=== PATIENT | male | born 1935 ===

== ENCOUNTER 2017-11-21 09:18 | Observation (INO) | payer MEDICARE, OTHER ==
[2016-05-31 11:19] VITALS: BMI 23.8
[2017-11-21] MEDS ORDERED: Lidocaine/Epinephrine 1% 1:100000 10 ML IJ ONE (13:27)
[2017-11-21] MEDS ORDERED: Propofol 10 mg/ml Inj (20 ML) ONE (13:28)
[2017-11-21] MEDS ORDERED: Rocuronium 10 mg/ml (5 ml) ONE (13:29)
[2017-11-21] MEDS: Bupivacaine HCl 0.25% PF (30 ml) Inj ONE ×2 (13:35→16:30)
[2017-11-21] MEDS: ceFAZolin 1 gm in NS 2 GM/200 ML BAG IVPB ONE ×2 (13:45→13:50)
[2017-11-21] MEDS ORDERED: Neostigmine Methylsulfate 3mg/3ml Syringe IV ONE (15:38)
[2017-11-21] MEDS ORDERED: Oxycodone/Acetaminophen 5/325 mg Tab PO PRN (16:51)
--- NOTE | 2017-11-21 16:56 | PCM.SURG1 ---
Surgeon's Initial Post Op Note - Surgeon's Notes Surgeon: Dr. Young Personal Financial Advisor: ALEXIA Kumar PGY2 Type of Anesthesia: General Endo Pre-Operative Diagnosis: left inguinal hernia Operative Findings: left indirect inguinal and femoral hernia with cord lipoma, right indirect inguinal hernia with cord lipoma, umbilica hernia Post-Operative Diagnosis: bilateral inguinal hernia Operation Performed: robotic assisted laparoscopic bilateral inguinal hernia repair with mesh Specimen/Specimens Removed: bilateral cord lipomas Estimated Blood Loss: EBL {In ML}: 10 Blood Products Given: N/A Drains Used: No Drains Date of Surgery/Procedure: 11/21/17 Time of Surgery/Procedure: 14:00
[2017-11-21] MEDS: HYDROmorphone 0.5 mg/0.5 ml ISec IVP PRN ×3 (17:01→17:37)
[2017-11-21] MEDS ORDERED: Lactated Ringer's 500 ML IV ONE (19:00)
[2017-11-21] MEDS: Lactated Ringer's 1,000 ML IV SCH (21:30)
[2017-11-21 22:12] VITALS: RESP 20
[2017-11-21] MEDS: (Novolin R) Insulin Human Regular 100 units/ml vial SC SCH (22:27)
[2017-11-21] MEDS: Docusate-Senna 50 mg-8.6 mg Tab PO SCH (22:38)
--- NOTE | 2017-11-22 04:20 | OP ---
PROCEDURE DATE: 11/21/2017 PREOPERATIVE DIAGNOSES: 1. Left inguinal hernia. 2. Possible bilateral inguinal hernia. POSTOPERATIVE DIAGNOSES: 1. Left direct inguinal hernia. 2. Left large lipoma of the cord. 3. Right direct inguinal hernia. 4. Right lipoma of the spermatic cord. 5. Umbilical hernia, very small. PROCEDURE: 1. Robotic left inguinal hernia repair with a mesh. 2. Robotic excision of lipoma of the left spermatic cord. 3. Robotic right direct inguinal hernia. 4. Robotic excision of the right lipoma of the cord. 5. Laparoscopic bilateral TAP block placement. 6. Open umbilical hernia repair with primary closure, without mesh. SURGEON: Julio Young MD TYPE COPY EXAMINER: HARRY Root; and Morenita Cali, PGY-2 resident. ESTIMATED BLOOD LOSS: 10 mL. COMPLICATIONS: None. PATHOLOGY: 1. Left lipoma of the cord. 2. Right lipoma of the cord was sent to the pathology. INTRAOPERATIVE FINDINGS: The patient had left indirect inguinal hernia with large lipoma of the cord. The patient also had right direct inguinal hernia with large lipoma of the spermatic cord, and the patient had very small 1 x 1 cm umbilical hernia defect and the patient had no postoperative adhesions. On intraoperative steps, this is an 82-year-old male who was diagnosed with left inguinal hernia on CAT scan, and the patient also had a complaint on the right side groin pain and the patient was consented for the robotic left inguinal hernia repair with a mesh, possible bilateral, brought to the OR, placed supine on the operating table. After induction of the anesthesia, the abdomen was prepped and draped in usual sterile fashion. The supraumbilical transverse incision was made, after incising skin and subcutaneous tissue. The fascia was examined. The patient had a very small umbilical hernia and a port was placed through the hernial defect and pneumo was created. Another three 8-mm port was placed in upper abdomen. Robot was brought in. Camera arm, as well as arm 1 and arm 2 was docked, and the patient had bilateral inguinal hernia with large lipoma of the cord and dissection was started from the right ASIS up to the left ASIS. Midline dissection was done up to the space of Retzius and lateral abdominal wall dissection was done and peritoneum was from the spermatic cord vessels as well as Vas deferens and the first right direct inguinal hernial sac was reduced back into the cavity. The large lipoma of the cord was excised and inferior dissection was done up to the pelvic brim. On the left side, the lateral abdominal wall dissection was done. The peritoneum was from the Vas deferens and spermatic cord vessel, and the patient had an indirect inguinal hernia sac that was reduced secondary to the peritoneal cavity and the large lipoma of the cord was reduced, excised, and it was sent off the table for pathology. Now, the right direct inguinal hernial empty sac was everted and it was tacked with tacker and the defect was closed, and now the right and left anatomical mesh was placed and mesh was implanted. After proper implantation of the mesh, the peritoneum was sutured with 2-0 Vicryl as well as 2-0 PDS V-Loc sutures, and after that, laparoscopically, bilateral TAP block was given, 30:30 mL of TAP block was given on the right and left side, and after that, the robot was undocked and the Pneumo was deflated. All the port was taken out under vision and umbilical hernial site was examined and decision was made to do primary closure because of the very small hernial defect and the defect was primarily closed with multiple interrupted 0 Prolene sutures. There was no mesh placed in the umbilical hernial defect due to small size and all the wounds were closed in 2 layers, subcu with 2-0 Vicryl, skin with 4-0 Monocryl and dry sterile dressing was applied. The patient tolerated the procedure well. Count of the instrument and gauze was correct. The patient was extubated in OR, sent to the postanesthesia care unit in stable condition. Julio Young MD
[2017-11-22] MEDS: (Novolin R) Insulin Human Regular 100 units/ml vial SC SCH ×2 (07:53→11:34)
[2017-11-22 08:02] VITALS: BP 146/79; PULSE 79; TEMP 97.9; O2SAT 96
--- NOTE | 2017-11-22 08:53 | CP.PCM.DIS ---
Provider - Provider Date of Admission: 11/21/17 20:44 Attending physician: Julio Young MD Primary care physician: PMD: Dr. Cohen Consults: Admitting doctor was Surgeon, Dr Young Time Spent in preparation of Discharge (in minutes): 33 Diagnosis - Discharge Diagnosis (1) Status post inguinal hernia repair Status: Resolved Priority: High Hospital Course - Lab Results Lab Results: Most Recent Lab Values POC Glucose (mg/dL) 108 mg/dL (65-110) 11/22/17 06:12 Blood Type A POSITIVE 11/21/17 10:14 Antibody Screen Negative 11/21/17 10:14 - Hospital Course Hospital Course: HOSPITAL COURSE: Patient was admitted for repair of bilateral inguinal hernia. He was operated on by surgeon Dr Young and PGY-[address] Sylvester. Operative findings included left indirect inguinal and femoral hernia with cord lipoma, right indirect inguinal hernia with cord lipoma, and umbilica hernia. The operation performed was a robotic assisted laparoscopic bilateral inguinal hernia repair with mesh. Post Op the patient recovered well. Post Op there was an instance of urinary retention (most likely due to anesthesia from surgery), the patient was straight cath'd with a result of 1000cc urinary output. Otherwise the patient had no post op issues. Detailed instructions for follow-up care were given to him (and included below). Discharge Exam - Head Exam Head Exam: ATRAUMATIC, NORMAL INSPECTION - Eye Exam Eye Exam: EOMI Pupil Exam: PERRL - ENT Exam ENT Exam: Mucous Membranes Moist - Respiratory Exam Respiratory Exam: Rales, NORMAL BREATHING PATTERN, UNREMARKABLE. absent: Rhonchi, Wheezes - Cardiovascular Exam Cardiovascular Exam: REGULAR RHYTHM, +S1, +S2. absent: JVD, Systolic Murmur - Rectal Exam Rectal Exam: Deferred - Extremities Exam Extremities exam: normal capillary refill, pedal pulses present - Back Exam Additional comments: (large pimple on right lumbar paravertebral region) - Neurological Exam Neurological exam: Alert, Oriented x3 - Psychiatric Exam Psychiatric exam: Normal Affect, Normal Mood - Skin Skin Exam: Intact, Normal Color Discharge Plan - Follow Up Plan Condition: GOOD Disposition: HOME/ ROUTINE Additional Instructions: You are medically stable for discharge. Please follow-up with Dr Young in 1 week. Please call his office to make an appointment You'll be discharged with a script for Percocet - take 1 tablet every 6 hours only as needed for pain. You'll be discharged with a script for Colace - take 2 tablets everyday until finished. No heavy lifting for 4-6 weeks. Keep in dressing in place for 5 days (you may shower but please keep the dressing dry) You may resume a normal diet. Please follow-up with your Primary Care Physician in 1 week so he/she may be aware of this surgery. Please resume all your normal home medications as prescribed by your Primary Care Physician. Referrals: Julio Young MD [Staff Provider] -
[2017-11-22] MEDS ORDERED: Pantoprazole 40 mg EC Tab PO SCH (10:00)
[2017-11-22] MEDS: Docusate-Senna 50 mg-8.6 mg Tab PO SCH (10:10)
[2017-11-22] MEDS: Lactated Ringer's 1,000 ML IV SCH (10:15)
== END 2017-11-22 13:47 | disposition home or self-care (01) ==
LOC: C.SDS 09:18 → C.9S 20:44 → C.6T 20:44
PROVIDERS: ADMIT Surgery Surgical Critical Care; ATTEND Surgery Surgical Critical Care
DX: K40.20 Bilateral inguinal hernia, without obstruction or gangrene, not specified as recurrent (principal); I25.10 Atherosclerotic heart disease of native coronary artery without angina pectoris; E11.9 Type 2 diabetes mellitus without complications; E78.5 Hyperlipidemia, unspecified; I10 Essential (primary) hypertension; R42 Dizziness and giddiness; N40.0 Benign prostatic hyperplasia without lower urinary tract symptoms; M19.90 Unspecified osteoarthritis, unspecified site; Z95.1 Presence of aortocoronary bypass graft; Z83.3 Family history of diabetes mellitus; I77.819 Aortic ectasia, unspecified site; D17.6 Benign lipomatous neoplasm of spermatic cord; K42.9 Umbilical hernia without obstruction or gangrene; R33.9 Retention of urine, unspecified
CPT/HCPCS: 36415; 49585; 49650; 55559; 64488; 82948; 86850; 86900; 88304; C1781; G0378; J0690; J1170; J1644; J2001; J2405; J2704; J2710; J3010; J7120